=== PATIENT | female | born 1930 | race Caucasian/White ===

== ENCOUNTER 2019-02-21 08:35 | Outpatient (CLI) | payer MEDICAID ==
[2019-02-21 11:23] LABS: Hematocrit 33.3 % (30.3-42.9); Hemoglobin 11.2 gm/dl (10.1-14.3); Mean Corpuscular HGB Conc 33 % (30-34); Mean Corpuscular Volume 91 fl (79-97); Platelet Count 222 K/mm3 (140-440); Red Blood Count 3.68 M/mm3 (3.65-5.03); Red Cell Distribution Width 15.4 % (13.2-15.2)
[2019-02-21 11:46] LABS: Albumin 3.6 g/dL (3.9-5); Calcium 9.6 mg/dL (8.4-10.2)
[2019-02-21 11:56] LABS: Free T4 (Free Thyroxine) 1.07 ng/dL (0.76-1.46)
== END 2019-02-21 08:36 | disposition home or self-care (01) ==
LOC: LAB 08:35
PROVIDERS: ATTEND Internal Medicine
DX: Z13.21 Encounter for screening for nutritional disorder (principal); E11.22 Type 2 diabetes mellitus with diabetic chronic kidney disease; N18.9 Chronic kidney disease, unspecified; D64.9 Anemia, unspecified; E78.5 Hyperlipidemia, unspecified
CPT/HCPCS: 36415; 80053; 80061; 82306; 82607; 83036; 84439; 84443; 85027